=== PATIENT | female | born 1960 | race Caucasian/White ===

== ENCOUNTER 2024-07-15 17:34 | Inpatient (IN) | payer MEDICARE, MEDICAID ==
[~2024-07-15] VITALS: Ht 162.6 cm; Wt 78.9 kg
[2024-07-15] MEDS ORDERED: MAGNESIUM/ALUMINUM HYDROXIDE/SIMETHICONE 30ML UDC PO PRN (20:00)
[2024-07-15] MEDS ORDERED: IPRATROPIUM/ALBUTEROL 0.5-3(2.5)MG/3ML NEB NEB PRN (20:00)
[2024-07-15] MEDS ORDERED: ONDANSETRON HCL 4MG/2ML INJ IV PRN (20:00)
[2024-07-15] MEDS ORDERED: CLONIDINE 0.1MG TABLET PO PRN (20:00)
[2024-07-15] MEDS ORDERED: ACETAMINOPHEN 325MG TABLET PO PRN (20:00)
[2024-07-15] MEDS ORDERED: ZOLPIDEM TARTRATE 5MG TABLET PO PRN (20:00)
[2024-07-15] MEDS ORDERED: EFEX1 PO (20:03)
[2024-07-15] MEDS ORDERED: ARIP30TA59 PO (20:03)
[2024-07-15] MEDS ORDERED: GABA-290 PO (20:03)
[2024-07-15] MEDS ORDERED: LORA-250 PO (20:03)
[2024-07-15] MEDS ORDERED: RISP-28 PO (20:03)
[2024-07-15] MEDS ORDERED: ROSU10CA PO (20:03)
[2024-07-15] MEDS ORDERED: TRAZ-251 PO (20:03)
[2024-07-15] MEDS ORDERED: ESCI-7 PO (20:03)
[2024-07-15] MEDS ORDERED: TOPI100T37 PO (20:03)
[2024-07-15] MEDS ORDERED: LORAZEPAM 1MG TABLET PO PRN (20:19)
[2024-07-15 23:00] VITALS: BP 153/96; PULSE 87; RESP 20; TEMP 36; O2SAT 98
[2024-07-15] MEDS: ATORVASTATIN CALCIUM 10MG TABLET PO SCH (23:36)
[2024-07-15] MEDS: TRAZODONE HCL 50MG TABLET PO SCH (23:37)
[2024-07-15] MEDS: GABAPENTIN 300MG CAPSULE PO SCH (23:37)
[2024-07-15] MEDS: MORPHINE SULFATE 2 MG/ML INJ (NOT FOR IM USE) IV PRN (23:38)
[2024-07-16 00:37] VITALS: BP 153/96; PULSE 79; RESP 18; TEMP 36
[2024-07-16 04:00] VITALS: BP 114/67; PULSE 62; RESP 20; TEMP 35.6; O2SAT 95
[2024-07-16 07:44] LABS: CHLORIDE 109 mEq/L (98-107)
[2024-07-16 07:45] LABS: BASOPHILS % 0.7 % (0.0-2.0); CARBON DIOXIDE 22 mEq/L (21-32); DIFFERENTIAL COMMENT 0; EOSINOPHILS % 7.3 % (0.0-5.0); HEMATOCRIT. 38.1 % (36.0-48.0); HEMOGLOBIN. 12.6 g/dL (12.0-16.0); MEAN CORPUSCULAR HEMOGLOBIN 33.2 pg (28.0-32.0); MEAN CORPUSCULAR HGB CONC 33.1 g/dL (31.0-37.0); MEAN CORPUSCULAR VOLUME 100.3 fL (81.0-99.0); MEAN PLATELET VOLUME 8.5 fl (7.4-10.4); MONOCYTES % 9.1 % (2.0-8.0); NEUTROPHILS % 56.9 % (40.0-76.0); PLATELET 190 x1000/uL (130-400); POTASSIUM 4.2 mEq/L (3.5-5.1); RED CELL DISTRIBUTION WIDTH 14.1 % (11.6-14.6); SODIUM 141 mEq/L (136-145); WHITE BLOOD COUNT 5.3 x1000/uL (4.5-11.0)
[2024-07-16 07:46] LABS: CALCIUM 9.6 mg/dL (8.7-10.4)
[2024-07-16 08:00] VITALS: BP 122/70; PULSE 63; RESP 19; TEMP 36.5; O2SAT 98
[2024-07-16 08:01] LABS: CREATININE 0.8 mg/dL (0.6-1.0); GLUCOSE 89 mg/dL (70-105); UREA NITROGEN BLOOD 15 mg/dL (9-23)
[2024-07-16 08:35] LABS: PROTHROMBIN TIME 10.9 sec (9.6-11.0)
[2024-07-16] MEDS ORDERED: VENLAFAXINE HCL 100MG TABLET PO SCH (09:00)
[2024-07-16] MEDS: CITALOPRAM HYDROBROMIDE 10MG TABLET PO SCH (09:09)
[2024-07-16] MEDS: PANTOPRAZOLE SODIUM 40 MG/VIAL IV SCH (09:09)
[2024-07-16] MEDS: ENOXAPARIN 40MG/0.4ML SYR SUBCUT SCH (09:09)
[2024-07-16] MEDS: ARIPIPRAZOLE 5MG TABLET PO SCH (09:10)
[2024-07-16] MEDS: RISPERIDONE 1MG TABLET PO SCH (09:10)
[2024-07-16 10:50] LABS: CLARITY URINE CLEAR (CLEAR); COLOR URINE YELLOW (YELLOW); GLUCOSE URINE NEGATIVE (NEGATIVE); KETONES URINE NEGATIVE (NEGATIVE); LEUKOCYTE ESTERASE URINE 1+ (NEGATIVE); NITRITE URINE NEGATIVE (NEGATIVE); OCCULT BLOOD URINE NEGATIVE (NEGATIVE); PROTEIN URINE NEGATIVE (NEGATIVE); SPECIFIC GRAVITY URINE 1.014 (1.005-1.030)
[2024-07-16] MEDS: TOPIRAMATE 100MG TABLET PO SCH (11:01)
[2024-07-16 11:48] LABS: SQUAMOUS EPITHELIAL CELL URINE FEW /lpf (RARE/1+)
[2024-07-16 11:50] LABS: WBC URINE 25-50 /hpf (0-2)
[2024-07-16 11:51] LABS: RBC URINE 0-2 /hpf (0-2)
[2024-07-16 11:53] LABS: BACTERIA URINE TRACE
[2024-07-16 12:00] VITALS: BP 103/68; PULSE 57; RESP 19; TEMP 36.7; O2SAT 97
[2024-07-16] MEDS ORDERED: VENLAFAXINE HCL 50MG TABLET PO SCH (13:00)
[2024-07-16] MEDS: HYDROCODONE/ACETAMINOPHEN 5/325MG TABLET PO PRN (14:51)
[2024-07-16 16:00] VITALS: BP 103/68; PULSE 57; RESP 19; TEMP 36.7; O2SAT 97
[2024-07-16 20:00] VITALS: BP 102/62; PULSE 54; RESP 19; TEMP 36.6; O2SAT 97
[2024-07-16] MEDS: VENLAFAXINE HCL 50MG TABLET PO SCH (21:43)
[2024-07-17] VITALS: BP 97/63; PULSE 60; RESP 19; TEMP 36.1; O2SAT 96
[2024-07-17 04:00] VITALS: BP 98/62; PULSE 57; RESP 19; TEMP 36.6; O2SAT 95
[2024-07-17 07:18] LABS: CALCIUM 9.6 mg/dL (8.7-10.4)
[2024-07-17 07:39] LABS: BASOPHILS % 0.7 % (0.0-2.0); EOSINOPHILS % 8.2 % (0.0-5.0); HEMATOCRIT. 37.3 % (36.0-48.0); HEMOGLOBIN. 12.2 g/dL (12.0-16.0); LYMPHOCYTES % 35.3 % (20.0-50.0); MEAN CORPUSCULAR HEMOGLOBIN 32.5 pg (28.0-32.0); MEAN CORPUSCULAR HGB CONC 32.7 g/dL (31.0-37.0); MEAN CORPUSCULAR VOLUME 99.4 fL (81.0-99.0); MEAN PLATELET VOLUME 8.5 fl (7.4-10.4); MONOCYTES % 8.4 % (2.0-8.0); NEUTROPHILS % 47.4 % (40.0-76.0); PLATELET 177 x1000/uL (130-400); RED BLOOD CELL COUNT 3.75 mill/uL (4.2-5.4); RED CELL DISTRIBUTION WIDTH 14.4 % (11.6-14.6); WHITE BLOOD COUNT 5.4 x1000/uL (4.5-11.0)
[2024-07-17 08:00] VITALS: BP 95/64; PULSE 52; RESP 17; TEMP 36.4; O2SAT 100
[2024-07-17 12:00] VITALS: BP 90/51; PULSE 63; RESP 18; TEMP 36.6; O2SAT 98
[2024-07-17 16:00] VITALS: BP 99/55; PULSE 57; RESP 17; TEMP 36.1; O2SAT 97
[2024-07-17 20:00] VITALS: BP 124/74; PULSE 61; RESP 19; TEMP 36.3; O2SAT 97
[2024-07-17] MEDS ORDERED: NALOXONE HCL 0.4MG/ML VIAL IV PRN (21:30)
[2024-07-18] VITALS (7 sets, daily range): BP systolic 97–117; BP diastolic 48–81; PULSE 56–66; RESP 16–19; TEMP 36.1–36.4; O2SAT 96–100
[2024-07-18] MEDS: LEVOFLOXACIN 250MG TABLET PO SCH (00:26)
[2024-07-18 07:23] LABS: HEMATOCRIT. 40.4 % (36.0-48.0); HEMOGLOBIN. 12.9 g/dL (12.0-16.0); MEAN CORPUSCULAR VOLUME 100.2 fL (81.0-99.0); RED BLOOD CELL COUNT 4.03 mill/uL (4.2-5.4); RED CELL DISTRIBUTION WIDTH 14.2 % (11.6-14.6)
[2024-07-18 07:25] LABS: POTASSIUM 4.6 mEq/L (3.5-5.1)
[2024-07-18 07:26] LABS: CALCIUM 9.2 mg/dL (8.7-10.4)
[2024-07-18 07:31] LABS: CREATININE 1.1 mg/dL (0.6-1.0)
[2024-07-18 08:34] LABS: DIFFERENTIAL COMMENT 1
[2024-07-18 13:52] LABS: PLATELET 192 x1000/uL (130-400)
[2024-07-18 13:57] LABS: PLATELET ESTIMATE NORMAL; TOXIC VACUOLATION FEW
== END 2024-07-18 22:30 | DRG 690 ==
LOC: 6EST 18:04
PROVIDERS: ADMIT Internal Medicine; ATTEND Internal Medicine
DX: N39.0 Urinary tract infection, site not specified (principal); F11.20 Opioid dependence, uncomplicated; I10 Essential (primary) hypertension; G89.4 Chronic pain syndrome; E78.5 Hyperlipidemia, unspecified; Z88.8 Allergy status to other drugs, medicaments and biological substances
CPT/HCPCS: 36415; 71045; 80048; 81003; 85025; 93970; J1650; J2270; J2470

== ENCOUNTER 2024-07-15 18:50 | Emergency (ER) | payer MEDICARE, MEDICAID ==
[~2024-07-15] VITALS: Ht 165.1 cm; Wt 79.0 kg
[2024-07-15 18:53] VITALS: O2SAT 97
[2024-07-15 19:54] VITALS: TEMP 35.6
[2024-07-15] MEDS ORDERED: ARIP30TA59 PO (20:03)
[2024-07-15] MEDS ORDERED: EFEX1 PO (20:03)
[2024-07-15] MEDS ORDERED: ROSU10CA PO (20:03)
[2024-07-15] MEDS ORDERED: RISP-28 PO (20:03)
[2024-07-15] MEDS ORDERED: ESCI-7 PO (20:03)
[2024-07-15] MEDS ORDERED: TOPI100T37 PO (20:03)
[2024-07-15] MEDS ORDERED: TRAZ-251 PO (20:03)
[2024-07-15] MEDS ORDERED: LORA-250 PO (20:03)
[2024-07-15] MEDS ORDERED: GABA-290 PO (20:03)
[2024-07-15 20:12] LABS: BASOPHILS % 0.8 % (0.0-2.0); DIFFERENTIAL COMMENT 0; HEMOGLOBIN. 11.8 g/dL (12.0-16.0); LYMPHOCYTES % 36.4 % (20.0-50.0); MEAN CORPUSCULAR HEMOGLOBIN 33.2 pg (28.0-32.0); MEAN CORPUSCULAR HGB CONC 32.9 g/dL (31.0-37.0); MEAN CORPUSCULAR VOLUME 100.9 fL (81.0-99.0); MEAN PLATELET VOLUME 8.6 fl (7.4-10.4); MONOCYTES % 9.1 % (2.0-8.0); NEUTROPHILS % 45.7 % (40.0-76.0); PLATELET 200 x1000/uL (130-400); RED BLOOD CELL COUNT 3.56 mill/uL (4.2-5.4); RED CELL DISTRIBUTION WIDTH 14.6 % (11.6-14.6); WHITE BLOOD COUNT 5.6 x1000/uL (4.5-11.0)
[2024-07-15 20:18] LABS: CHLORIDE 108 mEq/L (98-107); POTASSIUM 4.5 mEq/L (3.5-5.1)
[2024-07-15 20:19] LABS: CARBON DIOXIDE 27 mEq/L (21-32); SODIUM 143 mEq/L (136-145)
[2024-07-15 20:20] LABS: CALCIUM 9.2 mg/dL (8.7-10.4)
[2024-07-15 20:24] LABS: CREATININE 1.1 mg/dL (0.6-1.0); GLUCOSE 80 mg/dL (70-105)
[2024-07-15 20:25] LABS: UREA NITROGEN BLOOD 18 mg/dL (9-23)
[2024-07-15 20:26] LABS: ALANINE AMINOTRANSFERASE 45 IU/L (10-49); ALBUMIN 4.2 g/dL (3.2-4.8); ASPARTATE AMINOTRANSFERASE 42 IU/L (<34)
[2024-07-15 20:27] LABS: BILIRUBIN TOTAL 0.2 mg/dL (0.1-1.0); PROTEIN TOTAL 7.5 g/dL (6.0-8.3)
[2024-07-15 20:50] LABS: CLARITY URINE CLOUDY (CLEAR); COLOR URINE YELLOW (YELLOW); GLUCOSE URINE NEGATIVE (NEGATIVE); KETONES URINE NEGATIVE (NEGATIVE); LEUKOCYTE ESTERASE URINE NEGATIVE (NEGATIVE); NITRITE URINE POSITIVE (NEGATIVE); OCCULT BLOOD URINE NEGATIVE (NEGATIVE); PH URINE 7.5 (4.5-8.0); PROTEIN URINE NEGATIVE (NEGATIVE)
[2024-07-15 21:21] LABS: BACTERIA URINE 4+; RBC URINE 0-2 /hpf (0-2); SQUAMOUS EPITHELIAL CELL URINE 1+ /lpf (RARE/1+); WBC URINE 0-2 /hpf (0-2)
[2024-07-15] MEDS: LEVOFLOXACIN 500MG PREMIX 100 ML IV NR (21:38)
[2024-07-15] MEDS: ACETAMINOPHEN 325MG TABLET PO NR (21:38)
[2024-07-15 22:00] VITALS: O2SAT 99
[2024-07-15 22:27] VITALS: BP 126/75; PULSE 59; RESP 12; TEMP 96.08
== END 2024-07-15 22:28 | disposition admitted as inpatient to this hospital (09) ==
LOC: ER 18:50
DX: S80.02XA Contusion of left knee, initial encounter (principal); N39.0 Urinary tract infection, site not specified; R29.6 Repeated falls; E78.00 Pure hypercholesterolemia, unspecified; F32.A Depression, unspecified; I10 Essential (primary) hypertension; M17.12 Unilateral primary osteoarthritis, left knee; Z79.899 Other long term (current) drug therapy; Z86.73 Personal history of transient ischemic attack (TIA), and cerebral infarction without residual deficits; Z98.890 Other specified postprocedural states; W19.XXXA Unspecified fall, initial encounter; X58.XXXA Exposure to other specified factors, initial encounter; Y93.89 Activity, other specified; Y92.89 Other specified places as the place of occurrence of the external cause; Y99.8 Other external cause status
CPT/HCPCS: 99284; 96365; 80053; 81003; 85025; 36415; 73560; J1956; A4606